=== PATIENT | male | born 1950 | race Caucasian/White ===

== ENCOUNTER 2019-09-17 06:15 | Day surgery (SDC) | payer OTHER ==
[~2019-09-17 06:15] MED LIST: ASPIR 8181 MG PO
[2019-09-17] MEDS ORDERED: PERCOCET 5-3251 EACH PO (12:53)
[2019-09-17] MEDS ORDERED: NEURONTIN600 M1 PO (12:53)
[2019-09-17] MEDS ORDERED: COLACE100 MG PO (12:53)
== END 2019-09-17 17:10 | disposition home or self-care (01) ==
LOC: CIR.AMB 06:15
PROVIDERS: ATTEND Surgery
DX: K40.90 Unilateral inguinal hernia, without obstruction or gangrene, not specified as recurrent (principal); D17.6 Benign lipomatous neoplasm of spermatic cord; Z20.828 Contact with and (suspected) exposure to other viral communicable diseases

== ENCOUNTER 2019-11-19 06:20 | Day surgery (SDC) | payer OTHER ==
[~2019-11-19 06:20] MED LIST changes: +COLACE100 MG PO; +ENALAPRIL PO; +METO PO; +NEURONTIN600 M1 PO; +PERCOCET 5-3251 EACH PO; +ROSUVAST PO
[2019-11-19] MEDS ORDERED: COLACE100 MG PO (10:40)
[2019-11-19] MEDS ORDERED: NEURONTIN600 M1 PO (10:40)
[2019-11-19] MEDS ORDERED: PERCOCET 5-3251 EACH PO (10:40)
== END 2019-11-19 19:20 | disposition home or self-care (01) ==
LOC: CIR.AMB 06:20
PROVIDERS: ATTEND Surgery
DX: K40.90 Unilateral inguinal hernia, without obstruction or gangrene, not specified as recurrent (principal); D17.6 Benign lipomatous neoplasm of spermatic cord; Z20.828 Contact with and (suspected) exposure to other viral communicable diseases